=== PATIENT | female | born 1995 | race Caucasian/White ===

== ENCOUNTER 2017-10-17 17:50 | Emergency (ER) | payer BC, OTHER ==
--- NOTE | 2017-10-17 18:19 | UC ---
Ear Complaint HPI - HPI Summary HPI Summary: 22 year old female presents with complains of bilateral ear fullness/pain. - History of Current Complaint Chief Complaint: UCEar Stated Complaint: EARS Hx Obtained From: Patient Hx Last Menstrual Period: 07/28/15 Onset/Duration: Lasting Days Severity Initially: Moderate Severity Currently: Moderate Pain Scale Used: 0-10 Numeric - 5 - Allergies/Home Medications Allergies/Adverse Reactions: Allergies Allergy/AdvReac Type Severity Reaction Status Date / Time No Known Allergies Allergy Verified 10/17/17 18:10 Home Medications: Home Medications Vit W/ Docusate-Fe Fu [ 19] 1 tab PO DAILY 10/17/17 [History Confirmed 10/17/17] PMH/Surg Hx/FS Hx/Imm Hx Previously Healthy: Yes - Surgical History Surgical History: Unable to Obtain/Confirm - Family History Known Family History: Positive: None - Social History Alcohol Use: None Substance Use Type: None Smoking Status (MU): Never Smoked Tobacco Review of Systems Constitutional: Negative Skin: Negative Eyes: Negative ENT: Ear Ache Respiratory: Negative Cardiovascular: Negative Gastrointestinal: Negative Genitourinary: Negative Motor: Negative Neurovascular: Negative Musculoskeletal: Negative Neurological: Negative Psychological: Negative All Other Systems Reviewed And Are Negative: Yes Physical Exam Triage Information Reviewed: Yes Vital Signs: Initial Vital Signs Temp 36.7 C 10/17/17 18:04 Pulse 66 10/17/17 18:04 Resp 20 10/17/17 18:04 BP 122/59 10/17/17 18:04 Pulse Ox 99 10/17/17 18:04 Vital Signs Reviewed: Yes Eye Exam: Normal ENT: Positive: Nasal congestion Dental Exam: Normal Neck exam: Normal Neck: Positive: 1 Respiratory Exam: Normal Cardiovascular Exam: Normal Abdominal Exam: Normal Musculoskeletal Exam: Normal Neurological Exam: Normal Psychological Exam: Normal Skin Exam: Normal Ear Complaint Course/Dx - Differential Dx/Diagnosis Provider Diagnoses: bilateral ear effusion. bilateral ear pain Discharge - Discharge Plan Condition: Stable Disposition: HOME Patient Education Materials: Sinusitis (ED), Earache (ED) Referrals: Princess Christensen MD [Primary Care Provider] -
[2017-10-17 18:25] VITALS: BP 122/59
== END 2017-10-17 18:15 | disposition home or self-care (01) ==
LOC: UCCORT 17:50
DX: H65.199 Other acute nonsuppurative otitis media, unspecified ear (principal); H92.03 Otalgia, bilateral
CPT/HCPCS: 99211; G0463